=== PATIENT | female | born 1975 | race Caucasian/White ===

== ENCOUNTER 2023-11-28 08:00 | Day surgery (SDC) | payer OTHER ==
[2023-11-22 08:47] LABS: PH,URINE 6.5 (5.0-8.0); URINE APPEARANCE Clear; URINE BILIRRUBIN Negative (NEGATIVE); URINE BLOOD NHT; URINE COLOR Yellow; URINE GLUCOSE Negative (NEGATIVE); URINE KETONE Negative (NEGATIVE); URINE LEUKOCYTE Negative; URINE NITRATE Negative; URINE PROTEIN Negative (NEGATIVE); URINE UROBILINOGEN 0.2 E.U./dl
[2023-11-22 08:50] LABS: URINE BACTERIA 221.7 uL (0.0-1933); URINE EPITHELIAL CELLS 23.6 uL (0.0-38.8); URINE RBC 9.3 uL (0.0-20.8); URINE WBC 7.8 uL (0.0-23.2)
[2023-11-22 08:53] LABS: HEMOGLOBIN 12.8 g/dL (12.0-15.00); MEAN CELL VOLUME 86.9 fL (80.00-100.00); MEAN CORPUSCULAR HEMOGLOBIN 29.4 pg (27.00-32.0); MEAN CORPUSCULAR HGB CONC 33.8 g/dl (32.0-36.0); PLATELET COUNT 290 K/uL (150-450); RED BLOOD COUNT 4.37 M/uL (4.00-6.00); RED CELL DISTRIBUTION WIDTH 15.7 % (11.5-14.5)
[2023-11-22 09:38] LABS: INR < 0.93; PARTIAL THROMBOPLASTIN TIME 31.4 SECONDS (22.0-34.0); PROTHROMBIN TIME 9.7 SECONDS (9.0-11.5)
[2023-11-22 09:43] LABS: ALBUMIN 4.2 gm/dL (3.4-5.0); BILIRUBIN TOTAL 0.47 mg/dL (0.3-1.2); CALCIUM 10.1 mg/dL (8.5-10.1); CREATININE SERUM 0.76 mg/dL (0.55-1.02); GFR 80.88; GLOBULINA 3.8 G/DL (2.4-3.5); POTASSIUM 4.81 mEq/L (3.5-5.1)
[~2023-11-28] VITALS: Ht 162.6 cm; Wt 60.3 kg
[~2023-11-28 08:00] MED LIST: CATAFLAN PO; CIPRO500 MG PO; NORFLEX PO; TAMS0.4C PO
[2023-11-28] MEDS ORDERED: CEFAZOLIN SODIUM 1,000 MG VIAL ONE (11:12)
[2023-11-28] MEDS ORDERED: BUPIVACAINE HCL/Mpf 0.5% 10ML VIAL ONE (11:35)
== END 2023-11-28 15:50 | disposition home or self-care (01) ==
LOC: CIR.AMB 08:00
PROVIDERS: ATTEND Orthopaedic Surgery Hand Surgery
DX: M77.11 Lateral epicondylitis, right elbow (principal); H52.209 Unspecified astigmatism, unspecified eye